=== PATIENT | male | born 1985 | race Caucasian/White ===

== ENCOUNTER 2023-08-11 05:40 | Outpatient (CLI) | payer BC ==
[~2023-08-11] VITALS: Ht 182.9 cm; Wt 110.4 kg
[2023-08-11] MEDS ORDERED: ATOR20TA66 PO (11:24)
== END 2023-08-11 11:42 | disposition home or self-care (01) ==
LOC: PREOP 05:40
PROVIDERS: ATTEND Surgery
DX: Z01.818 Encounter for other preprocedural examination (principal)

== ENCOUNTER 2023-08-23 08:04 | Day surgery (SDC) | payer BC ==
[~2023-08-23] VITALS: Ht 182.8 cm; Wt 110.4 kg
[~2023-08-23 08:04] MED LIST: ATOR20TA66 PO
[2023-08-23] MEDS ORDERED: LACTATED RINGERS 1,000 ML 1,000 ML IV STA (08:13)
--- NOTE | 2023-08-23 08:27 | Progress Note-Pre Operative ---
Pre-Operative Progress Note Date of Available H&P: Aug 05, 2023 Date H&P Reviewed: Aug 23, 2023 Time H&P Reviewed: 08:23 History & Physical: H&P Reviewed, Patient Examed, No changes noted Pre-Operative Diagnosis: Rectal bleed MANDY HUNT DO Aug 23, 2023 08:27
[2023-08-23 08:50] VITALS: BP 114/60
[2023-08-23] MEDS ORDERED: MIDAZOLAM INJ 2 MG/2 ML VIAL ONE (10:15)
[2023-08-23 10:40] VITALS: BP 110/57
[2023-08-23 10:45] VITALS: BP 107/55
--- NOTE | 2023-08-23 10:46 | Progress Note-Post Operative ---
Post-Operative Progess Note Surgeon (s)/Medicaid Service Coordinator (s) Surgeon MANDY HUNT DO Medicaid Service Coordinator: none Pre-Operative Diagnosis Rectal bleed Post-Operative Diagnosis Cecal polyp Diverticula int hemmorhoids Procedure & Operative Findings Date of Procedure 08/23/23 Procedure Performed/Findings Colonoscopy with snare polypectomy PROCEDURE NOTE: After informed consent was obtained, the patient was brought to the endoscopy suite, placed in bed in left lateral decubitus position. He was administered IV sedation by the SILK WINDING MACHINE OPERATOR who then monitored his vitals the entire time, heart rate, blood pressure and pulse ox and the scope was inserted, pushed all the way to about 150 cm and pushed into the cecum, took a picture of appendiceal orifice and noted the ileocecal valve. On the way in I found a few diverticula, most on the left side. I did not see any inflammation or ulceration. I did find a flat polyp in the cecum, near the appendiceal orifice that I removed with the snare. Then slowly withdrew the scope insufflating to look circumferentially at the carrasquillo starting in the cecum, up the ascending colon to the hepatic flexure, then down the transverse colon to the splenic flexure, into the descending colon down into the sigmoid and then into the rectal vault. I retroflexed the scope and took a picture of the internal hemorrhoids. As I pulled the scope out I everted the anus looking for a fissure and did not find one. The patient tolerated the procedure. He was recovered in endoscopy suite. Recommended for repeat colonoscopy in 5 years. Anesthesia Type IV sedation by SILK WINDING MACHINE OPERATOR Estimated Blood Loss Estimated blood loss (mL): scant Specimens/Packing Specimens Removed cecal polyp MANDY HUNT DO Aug 23, 2023 10:46
--- NOTE | 2023-08-23 10:47 | Endoscopy Discharge Instruct ---
Endo Procedure/Findings Findings 1.: Polyp 2.: Diverticulosis 3.: Internal Hemorrhoids Discharge Instructions - Activity: You might feel a little sleepy until tomorrow. This is due to the medicine you received to relax you. Until tomorrow, you should: NOT drive a car, operate machinery or power tools. NOT drink any alcoholic beverages. NOT make any important decisions or sign importortant papers. Do not return to work until tomorrow, unless otherwise instructed. Resume previous activities tomorrow. Diet: Start by taking liquids. If you tolerate liquids, advance to solid food. 1.: Colonscopy in 5 years Notify Physician - If you experience excessive bleeding, unusual abdominal pain, fever, or chest pain, contact your doctor immediately. Follow-Up: Other Follow up in my office in one week MANDY HUNT DO Aug 23, 2023 10:47
[2023-08-23 10:50] VITALS: BP 103/57
[2023-08-23 11:34] VITALS: BP 103/57
--- NOTE | 2023-08-23 11:46 | Anesthesia-General Post-Op ---
MAC Patient Condition Mental Status/LOC: Same as Preop Cardiovascular: Satisfactory Nausea/Vomiting: Absent Respiratory: Satisfactory Pain: Controlled Complications: Absent Post Op Complications Complications None Follow Up Care/Instructions Patient Instructions None needed. Anesthesiology Discharge Order Discharge Order Patient is doing well, no complaints, stable vital signs, no apparent adverse anesthesia problems. No complications reported per nursing. OLEG DE ANDA CRNA Aug 23, 2023 11:46
== END 2023-08-23 11:34 | disposition home or self-care (01) ==
LOC: ENDO 08:04
PROVIDERS: ATTEND Surgery
DX: K63.5 Polyp of colon (principal); K62.5 Hemorrhage of anus and rectum; K57.30 Diverticulosis of large intestine without perforation or abscess without bleeding; K64.8 Other hemorrhoids
CPT/HCPCS: 88305